=== PATIENT | male | born 2000 | race Caucasian/White ===

== ENCOUNTER 2020-05-13 02:50 | Emergency (ER) | payer OTHER, SELFPAY ==
--- NOTE | 2020-05-13 08:57 | RAD ---
Chest one view HISTORY: Syncope. FINDINGS: Cardiac silhouette and pulmonary vasculature are unremarkable. Mediastinum is midline. No l obar consolidation IMPRESSION : No abnormalities are demonstrated.
== END 2020-05-13 04:11 | disposition home or self-care (01) ==
LOC: ERS 02:50
DX: R55 Syncope and collapse (principal); F10.129 Alcohol abuse with intoxication, unspecified
CPT/HCPCS: 71045; 93005